=== PATIENT | female | born 1995 | race Caucasian/White ===

== ENCOUNTER 2019-12-20 23:11 | Emergency (ER) | payer MEDICAID ==
[~2019-12-20] VITALS: Ht 162.6 cm; Wt 63.5 kg
[2019-12-20 23:25] VITALS: BP 133/69
--- NOTE | 2019-12-20 23:38 | NUR ---
PT COMING IN WITH C/O PERITONSSILAR ABSCESS X 5 DAYS. PT HAVING DIFFICULTY SWALLOWING AND SPEAKING. PAIN IS 9/10. AFEBRILE, NO SOB, NO COUGH, NO N/V/D. BED IN LOWEST POSITION AND SIDE RAIL UP X 1 ALLERGIES - PCN, AMOXICILLIN, CEPHALEXIN NO MED HX NO MEDS
--- NOTE | 2019-12-20 23:39 | NUR ---
DR WILSON AT BEDSIDE
[2019-12-20] MEDS ORDERED: MORPHINE SULFATE 4 MG/ML SYR IVP ONE (23:40)
[2019-12-20] MEDS ORDERED: NACL 0.9% 1,000 ML IV ONE (23:40)
[2019-12-21] MEDS ORDERED: methylPREDNISolone SS 125 MG/2 ML VIAL IVP ONE (00:05)
[2019-12-21 00:07] LABS: BASOPHILS % (AUTO) 0.3 % (0.0-2.0); EOSINOPHILS # (AUTO) 0.1 K/uL (0-0.4); EOSINOPHILS % (AUTO) 0.9 % (0.0-4.0); HEMATOCRIT 37.3 % (36-48); HEMOGLOBIN 12.3 g/dL (12.0-16.0); LYMPHOCYTES # (AUTO) 1.7 K/uL (2.5-16.5); LYMPHOCYTES % (AUTO) 17.9 % (20.5-51.1); MEAN CORPUSCULAR HEMOGLOBIN 28 pg (27-31); MEAN CORPUSCULAR HGB CONC 33 g/dL (33-37); MEAN CORPUSCULAR VOLUME 84.3 fL (80-94); MONOCYTES # (AUTO) 0.8 K/uL (0.8-1.0); MONOCYTES % (AUTO) 7.9 % (1.7-9.3); NEUTROPHILS # (AUTO) 6.9 K/uL (1.8-7.7); PLATELET COUNT (AUTO) 272 K/uL (140-450); RED BLOOD CELL COUNT(AUTO) 4.43 MIL/uL (4.20-5.40); RED CELL DISTRIBUTION WIDTH 14.5 % (11.6-13.7); WHITE BLOOD COUNT (AUTO) 9.5 K/uL (4.8-10.8)
[2019-12-21] MEDS ORDERED: DEXAMETHASONE 10 MG/ML VIAL IVP ONE (00:10)
--- NOTE | 2019-12-21 00:11 | NUR ---
PT SIGNED CONSENT FOR CT WITH IV CONTRAST. 20 G IV ESTABLISHED TO LAC. HCG -.
[2019-12-21] MEDS ORDERED: fentaNYL 0.05 MG/ML VIAL IVP ONE (00:15)
[2019-12-21 00:33] LABS: ALBUMIN 3.9 g/dL (3.4-5.0); ANION GAP 12.5 (8-16); CARBON DIOXIDE 28.3 mmol/L (21-32); CREATININE 0.8 mg/dL (0.6-1.3); POTASSIUM 3.8 mmol/L (3.5-5.1); TOTAL BILIRUBIN 0.4 mg/dL (0.0-1.0)
--- NOTE | 2019-12-21 00:47 | NUR ---
PT GOING TO CT VIA WHEELCHAIR
[2019-12-21] MEDS ORDERED: CLINDAMYCIN 600 MG in DEXTROSE 5% 50 ML IV ONE (01:00)
[2019-12-21] MEDS ORDERED: CLINDAMYCIN 600 MG/4 ML VIAL ONE (01:16)
--- NOTE | 2019-12-21 01:23 | NUR ---
PT STARTED ON CLINDAMYCIN IVPB. TOLERATED WELL. NADR
--- NOTE | 2019-12-21 01:42 | NUR ---
DR WILSON EXAMINING PT.
--- NOTE | 2019-12-21 02:06 | NUR ---
Patient discharged with v/s stable. Written and verbal after care instructions given and explained. Patient alert, oriented and verbalized understanding of instructions. Ambulatory with steady gait. All questions addressed prior to discharge. ID band removed. Patient advised to follow up with PMD. Rx of CLINDAMYCIN, IBUPROFEN, AND PREDNISONE given. Patient educated on indication of medication including possible reaction and side effects. Opportunity to ask questions provided and answered.
[2019-12-21 02:07] VITALS: BP 122/76
== END 2019-12-21 02:06 | disposition home or self-care (01) ==
LOC: MED 23:11
DX: J36 Peritonsillar abscess (principal); R74.0 Nonspecific elevation of levels of transaminase and lactic acid dehydrogenase [LDH]; F17.200 Nicotine dependence, unspecified, uncomplicated; Z98.890 Other specified postprocedural states; Z88.0 Allergy status to penicillin; Z88.1 Allergy status to other antibiotic agents
CPT/HCPCS: 36415; 70491; 80053; 81025; 83605; 85025; 87040; 96365; 96375; 99285; J1100; J2270; J2930; J3010; J3490; J7030; Q9967